=== PATIENT | female | born 1965 | race Caucasian/White ===

== ENCOUNTER → 2017-12-26 | Outpatient (CLI) | payer BC ==
[~2017-12-26] MED LIST: ALEVE220 MG PO; AMBIEN 10MG10 MG PO; ATIVAN 0.50.5 MG/TAB PO; ATIVAN 1MG T1 MG/TAB PO; ATIVAN0.5 MG PO; CO Q-1010 M1 PO; EPA/GLA1 SGL PO; IRON325 M1 PO; IRON90 MG PO; KLONOPIN0.5 MG PO; LEXAPRO 10MG10 MG PO; LEXAPRO 5MG5 MG; MULTI VITAMINS1 TAB PO; MULTIPLE VITAMI1 TAB PO; MULTIVITAMIN1 TA1 PO; OMEGA 31000 MG PO; PREDNISONE20 MG PO; SPIRULINA PO; VALTREX; VITRON-C PO
== END ==
LOC: MC.RAD 11:00
DX: Z12.31 Encounter for screening mammogram for malignant neoplasm of breast (principal)

== ENCOUNTER → 2019-10-15 | Outpatient (CLI) | payer BC ==
[~2019-10-15] MED LIST changes: +NEXIUM 20MG20 MG PO
== END ==
LOC: MC.RAD 09:42
DX: Z12.31 Encounter for screening mammogram for malignant neoplasm of breast (principal); N63.10 Unspecified lump in the right breast, unspecified quadrant

== ENCOUNTER 2019-10-16 03:31 | Emergency (ER) | payer BC ==
[~2019-10-16] VITALS: Ht 175.3 cm; Wt 90.9 kg
[~2019-10-16 03:31] MED LIST changes: -NEXIUM 20MG20 MG PO
[2019-10-16 03:40] VITALS: TEMP 99.1
[2019-10-16] MEDS ORDERED: NEXIUM 20MG20 MG PO (04:00)
[2019-10-16 04:43] VITALS: BP 121/93; PULSE 91
== END 2019-10-16 04:45 | disposition home or self-care (01) ==
LOC: COL.ER 03:31
DX: F41.9 Anxiety disorder, unspecified (principal); Z00.00 Encounter for general adult medical examination without abnormal findings

== ENCOUNTER → 2019-10-18 | Outpatient (CLI) | payer BC ==
[~2019-10-18] MED LIST changes: +NEXIUM 20MG20 MG PO
== END ==
LOC: MC.RAD 09:29
DX: N60.01 Solitary cyst of right breast (principal)
CPT/HCPCS: G0279

== ENCOUNTER → 2019-12-12 | Outpatient (CLI) | payer BC ==
--- NOTE | 2019-12-10 08:05 | NUR ---
LMOM WITH DATE TIME AND LOCATION. INSTRUCTIONS GIVEN. REQUESTED PT CALL BACK AND LEFT NUMBER
[~2019-12-12] VITALS: Ht 175.3 cm; Wt 97.4 kg
[~2019-12-12] MED LIST changes: +PROTONIX 40MG T40 MG PO
[2019-12-12 10:27] VITALS: BP 154/90; PULSE 90
[2019-12-12 11:25] VITALS: BP 148/99; PULSE 80
== END ==
LOC: COL.RAD 10:00
DX: E04.2 Nontoxic multinodular goiter (principal)
CPT/HCPCS: 32106

== ENCOUNTER → 2020-05-20 | Outpatient (CLI) | payer BC | LOC: MC.RAD 13:00 | DX: R92.8 Other abnormal and inconclusive findings on diagnostic imaging of breast (principal) ==

== ENCOUNTER → 2020-11-02 | Outpatient (CLI) | payer BC | LOC: MC.RAD 08:00 | DX: N63.10 Unspecified lump in the right breast, unspecified quadrant (principal); Z80.3 Family history of malignant neoplasm of breast ==

== ENCOUNTER 2021-02-02 17:51 | Emergency (ER) | payer BC ==
[~2021-02-02] VITALS: Ht 175.3 cm; Wt 98.6 kg
[2021-02-02 18:56] VITALS: BP 171/104; PULSE 97; TEMP 98.3
== END 2021-02-02 19:00 | disposition home or self-care (01) ==
LOC: COL.ER 17:51
DX: I10 Essential (primary) hypertension (principal); R09.81 Nasal congestion; Z88.0 Allergy status to penicillin; Z88.1 Allergy status to other antibiotic agents

== ENCOUNTER → 2022-02-04 | Outpatient (CLI) | payer BC | LOC: MC.RAD 09:12 | DX: Z12.31 Encounter for screening mammogram for malignant neoplasm of breast (principal) ==

== ENCOUNTER → 2022-06-08 | Outpatient (CLI) | payer BC ==
[2022-06-08 11:20] LABS: BASO % 0.4 % (0.0-2.0); EOS # 0.3 K/mm3 (0.0-0.7); EOS % 3.6 % (0.0-4.0); GRAN # 4.6 K/mm3 (1.4-6.5); GRAN % 64.5 % (42.2-75.2); HEMATOCRIT 43.1 % (37.0-47.0); HEMOGLOBIN 14.4 g/dl (12.5-16.0); LYMPH # 1.6 K/mm3 (1.2-3.4); LYMPH % 23.2 % (20.0-51.0); MEAN CELL VOLUME 84 fl (80.0-100.0); MEAN CORPUSCULAR HEMOGLOBIN 28 pg (27-31); MEAN CORPUSCULAR HGB CONC 33 g/dl (33.0-37.0); MEAN PLATELET VOLUME 10.3 fl (7.4-10.4); MONO # 0.6 K/mm3 (0.1-0.6); PLATELET COUNT 236 K/mm3 (130-400); RED BLOOD COUNT 5.12 M/mm3 (4.10-5.30); REDCELL DISTRIBUTION WIDTH-CV 13.5 % (11.5-14.5)
[2022-06-08 12:14] LABS: CREATININE, serum 0.78 mg/dL (0.57-1.11); POTASSIUM 4.2 mmol/L (3.5-4.5)
[2022-06-08 12:15] LABS: CALCIUM 9.3 mg/dL (8.4-10.2); THYROID STIMULATING HORMONE 0.431 uIU/mL (0.350-4.940)
== END ==
LOC: COL.LAB 08:00
DX: R42 Dizziness and giddiness (principal)